=== PATIENT | male | born 1985 | race Two or more races ===

== ENCOUNTER 2021-05-28 17:25 | Emergency (ER) | payer OTHER ==
[~2021-05-28] VITALS: Ht 182.9 cm; Wt 111.0 kg
[2021-05-28 18:01] VITALS: BP 165/96
--- NOTE | 2021-05-28 18:41 | PHYS DOC ---
Past History Past Medical History: Other Additional Past Medical Histor: herniated disk Past Surgical History: No Surgical History Alcohol Use: Occasionally Drug Use: None Adult General Chief Complaint Chief Complaint: BACK PAIN OR INJURY HPI HPI Patient is a 36-year-old male who presents with acute on chronic low back pain that started earlier today when he was weightlifting. Denies any recent travel, traumas, illness, fevers, chest pain, shortness of breath. Denies any numbness/weakness/tingling. States he did not take any medications today. Denies any trouble sitting, standing or walking. Denies any trouble making urine or stool. Review of Systems Review of Systems Review of systems otherwise unremarkable except noted in HPI Allergies Allergies Allergies Coded Allergies Type Severity Reaction Last Updated Verified No Known Drug Allergies 09/05/14 No Physical Exam Physical Exam Constitutional: Well developed, well nourished, no acute distress, non-toxic appearance. [] HENT: Normocephalic, atraumatic, bilateral external ears normal, oropharynx moist, no oral exudates, nose normal. [] Eyes: PERRLA, EOMI, conjunctiva normal, no discharge. [] Neck: Normal range of motion, no tenderness, supple, no stridor. [] Cardiovascular:Heart rate regular rhythm, no murmur [] Lungs & Thorax: Bilateral breath sounds clear to auscultation [] Abdomen: soft, no tenderness, no masses, no pulsatile masses. [] Skin: Warm, dry, no erythema, no rash. [] Back: Mild tenderness at lumbar paraspinal muscles with some spasm otherwise unremarkable, no CVA tenderness. [] Extremities: No tenderness, no cyanosis, no clubbing, ROM intact, no edema. [] Neurologic: Alert and oriented X 3, normal motor function, normal sensory fun ction, able to sit, stand and walk without issue no focal deficits noted. [] Psychologic: Affect normal, judgement normal, mood normal. [] Current Patient Data Vital Signs Vital Signs Date Time Temp Pulse Resp B/P (MAP) Pulse Ox O2 Delivery O2 Flow Rate FiO2 05/28/21 18:01 97.8 86 16 165/96 (119) 96 Room Air EKG EKG [] Radiology/Procedures Radiology/Procedures [] Heart Score C/O Chest Pain: No Risk Factors: Risk Factors: DM, Current or recent (<one month) smoker, HTN, HLP, family history of CAD, obesity. Risk Scores: Risk Factors: DM, Current or recent (<one month) smoker, HTN, HLP, family history of CAD, obesity. Course & Med Decision Making Course & Med Decision Making Patient is a 36-year-old male who presents with acute on chronic back pain and no medication management today Vital signs notable for hypertension. Physical exam noted above. Given medications for symptoms in the ED Discussed symptom management at home. Given medications for home management. Advised to follow-up with primary care physician Gave return precautions to the ED. Patient grateful, verbalized understanding and agreed with plan of discharge [] Dragon Disclaimer Dragon Disclaimer This electronic medical record was generated, in whole or in part, using a voice recognition dictation system. Departure Departure: Impression: Primary Impression: Acute exacerbation of chronic low back pain Disposition: HOME / SELF CARE / HOMELESS Condition: STABLE Referrals: BOBBY WEISS (PCP) Patient Instructions: Back Pain, Adult Additional Instructions: Thank you for coming into the emergency department tonight and allowing us to take care of you. Please read the attached information carefully to go over things we discussed. You can take Tylenol, ibuprofen, Benadryl and ice at home. You can also use Lidoderm patches you can get [id number]. Please use your muscle relaxers and prescription pain medicine as needed. Please follow-up with your primary care physician in the morning to update on your ED visit and set up a follow-up. Please come back with new or concerning symptoms as erika varela. PENNY HANSEN MD May 28, 2021 18:41
[2021-05-28] MEDS: ACETAMINOPHEN 325 MG TABLET PO ONE (18:45)
[2021-05-28] MEDS: KETOROLAC 60 MG/2 ML VIAL. IM ONE (18:45)
[2021-05-28] MEDS: CYCLOBENZAPRINE 10MG 4TABLET STARTPACK PO ONE (18:45)
[2021-05-28] MEDS: ACETAMINOPHEN/CODEINE 300/30MG 4TABLET STARTPACK. PO ONE (18:53)
[2021-05-28] MEDS: oxyCODONE IR 5 MG TABLET PO PRN (19:24)
== END 2021-05-28 19:25 | disposition home or self-care (01) ==
LOC: ER 17:25
DX: G89.29 Other chronic pain (principal); M54.59 Other low back pain
CPT/HCPCS: 96372; 99284; J1885